=== PATIENT | male | born 1970 | race African-American/Black ===

== ENCOUNTER 2024-12-11 17:05 | Emergency (ER) | payer MEDICAID ==
[~2024-12-11] VITALS: Ht 175.3 cm; Wt 79.4 kg
[2024-12-11] MEDS ORDERED: ONDANSETRON HCL/PF 4 MG/2 ML VIAL ONE (18:03)
[2024-12-11] MEDS ORDERED: HYDROMORPHONE 1 MG/1 ML DISP.SYRIN ONE (18:03)
[2024-12-11] MEDS: IV NS 0.9% 1,000 ML BAG IV ONE (18:10)
[2024-12-11 18:14] LABS: BASOPHILS # (AUTO) 0.1 K/uL (0.0-0.2); BASOPHILS % (AUTO) 0.8 % (0.0-2.0); EOSINOPHILS # (AUTO) 0.2 K/uL (0.0-0.7); EOSINOPHILS % (AUTO) 3.4 % (0.0-6.0); HEMATOCRIT 33 % (39-51); HEMOGLOBIN 11.2 g/dL (13.5-17.5); LYMPHOCYTES # (AUTO) 2.6 K/uL (0.8-4.8); LYMPHOCYTES % (AUTO) 35.8 % (20.0-44.0); MEAN CORPUSCULAR HEMOGLOBIN 31 PG (26.0-33.0); MEAN CORPUSCULAR HGB CONC 34 g/dl (31.0-36.0); MEAN CORPUSCULAR VOLUME 90 fL (80-96); MONOCYTES # (AUTO) 0.8 K/uL (0.1-1.30); MONOCYTES % (AUTO) 11.4 % (2.0-12.0); NEUTROPHILS # (AUTO) 3.6 K/uL (1.8-8.9); NEUTROPHILS % (AUTO) 48.6 % (43.0-81.0); PLATELET COUNT (AUTO) 452 K/uL (150-450); RED BLOOD CELL COUNT(AUTO) 3.66 MIL/uL (4.5-6.0); RED CELL DISTRIBUTION WIDTH 15.4 % (11.5-15.0); WHITE BLOOD COUNT (AUTO) 7.3 K/uL (4.3-11.0)
[2024-12-11] MEDS: ONDANSETRON HCL/PF 4 MG/2 ML VIAL IVP ONE (18:15)
[2024-12-11] MEDS: HYDROMORPHONE INJ 2 MG/ML DISP.SYRIN IV ONE (18:20)
[2024-12-11 18:22] LABS: CALCIUM, SERUM 8.6 mg/dL (8.5-10.1); CREATININE 1.6 mg/dL (0.6-1.3)
[2024-12-11 18:27] LABS: ALBUMIN 3.4 g/dL (3.4-5.0); BILIRUBIN,DIRECT 0.1 mg/dL (0.0-0.2); BILIRUBIN,TOTAL 0.4 mg/dL (0.2-1.0)
[2024-12-11 18:30] LABS: LACTIC ACID 1.2 mmol/L (0.4-2.0)
[2024-12-11] MEDS ORDERED: IV NS 0.9% 250 ML IV ONE (18:35)
[2024-12-11] MEDS ORDERED: IOHEXOL-300 100 ML VIAL IV ONE (18:35)
[2024-12-11 20:27] LABS: APPEARANCE,URINE SLIGHTLY CLOUDY (CLEAR); BILIRUBIN,URINE NEGATIVE (NEGATIVE); BLOOD, URINE 3+ Ery/uL (NEGATIVE); COLOR,URINE ORANGE (YELLOW); KETONES,URINE NEGATIVE (NEGATIVE); LEUKOCYTE ESTERASE ,URINE 3+ (NEGATIVE); NITRITE, URINE NEGATIVE (NEGATIVE); PH,URINE 7.5 (5.0-8.0); PROTEIN,URINE 3+ mg/dl (NEGATIVE); UGLUCOSE TRACE mg/dL (NEGATIVE); UROBILINOGEN,URINE 0.2 EU/dL (0.2)
[2024-12-11 20:43] LABS: RBC,URINE TOO NUMEROUS TO COUN /HPF (0-2)
[2024-12-11 20:44] LABS: ADD URINE CULTURE YES; BACTERIA,URINE Many /HPF (None Seen); SQUAMOUS EPITHELIAL CELL,UR Few /HPF (None Seen)
[2024-12-11] MEDS ORDERED: CEFP200T14 PO (21:24)
[2024-12-11] MEDS: CEFTRIAXONE 1GM BAG (ER ONLY) 1 GM/50 ML PIGGYBACK IV ONE (21:39)
[2024-12-11 21:59] VITALS: BP 113/60; TEMP 97.8; O2SAT 98
== END 2024-12-11 21:59 | disposition home or self-care (01) ==
LOC: ER 17:10
DX: N39.0 Urinary tract infection, site not specified (principal); C61 Malignant neoplasm of prostate; C79.51 Secondary malignant neoplasm of bone
CPT/HCPCS: 99285; 74177; 96365; 96375; 96361; 85025; 80048; 87040 ×2; 83605; 83690; 80076; 81001; 36415; J1171; J2405; J7030; J7050; J0696; Q9967; 87086-TC